=== PATIENT | female | born 1970 | race Caucasian/White ===

== ENCOUNTER 2022-11-08 13:38 | Outpatient (CLI) | payer OTHER, SELFPAY ==
[2022-11-08 17:36] LABS: Cholesterol* 269 mg/dL (90-199)
[2022-11-08 17:37] LABS: HDL Cholesterol* 110 mg/dL (>=50); LDL Cholesterol Calculated 139 mg/dL (<100); Triglycerides* 100 mg/dL (40-149)
[2022-11-08 17:43] LABS: Free T4 Free Thyroxine* 1.18 ng/dL (0.70-1.85)
[2022-11-10 10:53] LABS: Thyroid Peroxidase (TPO) Ab 1.5 IU/mL (0.0-9.0)
[2022-11-10 11:35] LABS: Total T3 117 ng/dL (80-200)
[2022-11-10 12:04] LABS: Follicle Stimulating Hormone 11.4 IU/L
== END 2022-11-08 13:39 | disposition home or self-care (01) ==
PROVIDERS: PCP Family Medicine; Visit Provider Obstetrics & Gynecology
DX: E03.9 Hypothyroidism, unspecified (principal); N95.1 Menopausal and female climacteric states
CPT/HCPCS: 80061; 83001; 84439; 84443; 84480; 86376

== ENCOUNTER 2023-01-16 12:56 | Outpatient (CLI) | payer OTHER, SELFPAY ==
--- NOTE | 2023-01-16 13:20 | CRLHL7_ITS ---
For Patients: As a result of the Century Cures Act, medical imaging exams and procedure reports are released immediately into your electronic medical record. You may view this report before your referring provider. If you have questions, please contact your health care provider. BILATERAL SCREENING MAMMOGRAM WITH COMPUTER-AIDED DETECTION AND TOMOSYNTHESIS TECHNIQUE: CC and MLO views were obtained. These mammographic images have been obtained using full-field digital technique. These mammographic images were interpreted with the benefit of computer-aided detection. Breast Tomosynthesis was used in this interpretation. COMPARISON FILM: 06/26/20, 02/16/19, 11/03/17. FINDINGS: The breasts are heterogeneously dense, which may obscure small masses IMPRESSION: There is no radiographic evidence for malignancy. ASSESSMENT: BI-RADS Category 1: Negative RECOMMENDATION: Routine screening mammogram in 1 year. A lay language report of this examination will be provided to the patient. Pedrito Alford M.D. Diagnostic Radiologist [email or web address] BRUCE/Dictated by: Pedrito Alford MD @ 01/17/2023 8:39:00 AM (Electronically Signed)
== END 2023-01-16 12:57 | disposition home or self-care (01) ==
LOC: MAMMO 12:57
PROVIDERS: PCP Family Medicine; Visit Provider Obstetrics & Gynecology
DX: Z12.31 Encounter for screening mammogram for malignant neoplasm of breast (principal); R92.2 Inconclusive mammogram
CPT/HCPCS: 77063; 77067